=== PATIENT | female | born 1980 | race American Indian/Alaskan Native ===

== ENCOUNTER 2018-03-18 09:24 | Outpatient (CLI) | payer BC ==
--- NOTE | 2018-03-18 10:49 | Mammography Report ---
Screening tomomammogram and 2-D compiled mammography: Routine 3-D views are compared to standard mammography and spot compression views obtained in 2016. The patient has a heterogeneously dense fibroglandular pattern which does not appear substantially different. On the tomomammograms a circumscribed nodular density is suspected in the central breast which is not identified in the lateral images. On the right side in the CC projection there is also a partially circumscribed nodular area noted centrally which is not clearly identified in the lateral tomograms. None of these have suspicious characteristics. CAD used. Impression: Stable exam. Recommendation: Annual mammogram followup. BI-RADS CATEGORY: 2 = Benign ACR BI-RADS MAMMOGRAPHIC CODES: 0 = Needs additional imaging evaluation; 1 = Negative; 2 = Benign; 3 = Probably benign; 4 = Suspicious; 5 = Malignant; 6 = Known biopsy-proven malignancy COMMENT: 1. Dense breast tissue, i.e., adenosis, fibrocystic changes, etc., may obscure an underlying neoplasm. 2. Approximately 10% of cancers are not detected with mammography. 3. A negative mammography report should not delay biopsy if a clinically suspicious mass is present.
== END 2018-03-18 09:25 | disposition home or self-care (01) ==
LOC: MAMMO 09:24
PROVIDERS: ATTEND Obstetrics & Gynecology
DX: Z12.31 Encounter for screening mammogram for malignant neoplasm of breast (principal)
CPT/HCPCS: 77063; 77067

== ENCOUNTER 2019-05-16 11:06 | Outpatient (CLI) | payer BC ==
--- NOTE | 2019-05-16 16:21 | Mammography Report ---
BILATERAL SCREENING MAMMOGRAM DIGITAL WITH CAD and 3D TOMOSYNTHESIS INDICATION: Screening. COMPARISONS: 03/18/2018 FINDINGS: 2D and 3D craniocaudal and mediolateral oblique views of both breasts were obtained [employer] digital acquisition. In addition to standard review, the examination was analyzed for possible abn ormalities using a computer-assisted detection device (iCAD). The breasts are heterogeneously dense, which may obscure small masses. A lobulated circumscribed righ t lower inner mass requires additional evaluation. It measures 1.6 x 1.0 x 0.9 cm and is best imaged on image for of the CC tomosynthesis series. No architectural distortion or suspicious calcification s. The left breast is negative. IMPRESSION: Right circumscribed lower inner mass requiring additional imaging. Recommend recall for a targeted right breast ultrasound. BI-RADS CATEGORY 0: Additional imaging evaluation required. COMMENT: Patient follow-up letters are generated by our [employer] application. Signer Name: Yair Paige MD Signed: 05/16/2019 4:16 PM Workstation Name: [id number]
--- NOTE | 2019-05-16 16:21 | Mammography Report ---
BILATERAL SCREENING MAMMOGRAM DIGITAL WITH CAD and 3D TOMOSYNTHESIS INDICATION: Screening. COMPARISONS: 03/18/2018 FINDINGS: 2D and 3D craniocaudal and mediolateral oblique views of both breasts were obtained [employer] digital acquisition. In addition to standard review, the examination was analyzed for possible abn ormalities using a computer-assisted detection device (iCAD). The breasts are heterogeneously dense, which may obscure small masses. A lobulated circumscribed righ t lower inner mass requires additional evaluation. It measures 1.6 x 1.0 x 0.9 cm and is best imaged on image for of the CC tomosynthesis series. No architectural distortion or suspicious calcification s. The left breast is negative. IMPRESSION: Right circumscribed lower inner mass requiring additional imaging. Recommend recall for a targeted right breast ultrasound. BI-RADS CATEGORY 0: Additional imaging evaluation required. COMMENT: Patient follow-up letters are generated by our [employer] application. Signer Name: Yair Paige MD Signed: 05/16/2019 4:16 PM Workstation Name: [id number]
== END 2019-05-16 11:07 | disposition home or self-care (01) ==
LOC: SPVWC 11:06
PROVIDERS: ATTEND Obstetrics & Gynecology
DX: Z12.31 Encounter for screening mammogram for malignant neoplasm of breast (principal)
CPT/HCPCS: 77063; 77067

== ENCOUNTER 2019-05-23 08:30 | Outpatient (CLI) | payer BC ==
--- NOTE | 2019-05-23 09:07 | Ultrasound Report ---
RIGHT BREAST ULTRASOUND INDICATION: Circumscribed right lower inner mass on recent screening mammogram. COMPARISON: 05/16/2019 FINDINGS: Targeted ultrasound of the lower inner right breast demonstrated a cluster of benign cysts at 5:00 5 cm from the nipple. The largest cyst measures 9 x 7 x 9 mm and the cluster of 3 cysts measu res 1.7 x 0.7 cm. No solid mass or shadowing. IMPRESSION: Right benign cysts and no suspicious finding. BI-RADS 2 BENIGN Signer Name: Yair Paige MD Signed: 05/23/2019 9:03 AM Workstation Name: [id number]
== END 2019-05-23 08:31 | disposition home or self-care (01) ==
LOC: SPVWC 08:30
PROVIDERS: ATTEND Obstetrics & Gynecology
DX: N60.01 Solitary cyst of right breast (principal)

== ENCOUNTER 2020-11-04 08:11 | Outpatient (CLI) | payer BC, OTHER ==
--- NOTE | 2020-11-04 09:37 | Mammography Report ---
DIGITAL SCREENING MAMMOGRAM WITH CAD, 11/04/2020 CLINICAL INFORMATION / INDICATION: Routine screening mammography. TECHNIQUE: Digital bilateral 2D mammography was obtained in the craniocaudal and mediolateral obliqu e projections. This examination was interpreted with the benefit of Computer-Aided Detection analysis . COMPARISON: 05/23/2019, 05/16/2019, 03/18/2018 FINDINGS: Breast Density: There are scattered areas of fibroglandular density. No dominant mass, suspicious calcifications, or architectural distortion in either breast. A cluster of cysts is again seen in the 5-6:00 position posterior depth of the right breast. IMPRESSION: No mammographic evidence of malignancy. Follow up recommendation: Routine yearly BI-RADS Category 2: Benign. A "normal" or negative report should not discourage follow up or biopsy of a clinically significant f inding. A written summary of these findings will be mailed to the patient. The patient will be entered into a mammography reporting system which will generate a reminder letter for the patient's next appointmen t at the appropriate interval. The [employer] recommends yearly mammograms starting at age 40 and continuing as l roberta as a woman is in good health. Breast MRI is recommended for women with an approximate 20-25% or greater lifetime risk of breast cancer, including women with a strong family history of breast or ova donna cancer or who have been treated for Hodgkin's disease. Signer Name: Fei Russell MD Signed: 11/04/2020 9:33 AM Workstation Name: [id number]
== END 2020-11-04 08:12 | disposition home or self-care (01) ==
LOC: SPVWC 08:11
PROVIDERS: ATTEND Obstetrics & Gynecology
DX: Z12.31 Encounter for screening mammogram for malignant neoplasm of breast (principal)
CPT/HCPCS: 77063; 77067

== ENCOUNTER 2022-01-12 08:55 | Outpatient (CLI) | payer OTHER ==
--- NOTE | 2022-01-13 14:49 | Mammography Report ---
DIGITAL SCREENING MAMMOGRAM WITH TOMOSYNTHESIS WITH CAD, 01/12/2022 CLINICAL INFORMATION / INDICATION: Routine Screening Mammography. TECHNIQUE: Digital bilateral 2D and 3D mammography with tomosynthesis was obtained in the craniocaud al and mediolateral oblique projections. Computer-Aided Detection (CAD) analysis was used for interp retation of this study. COMPARISON: Prior mammogram 11/04/2020 and 05/16/2019 FINDINGS: Breast Density: There are scattered areas of fibroglandular density. No dominant mass, suspicious calcifications, or architectural distortion in either breast. There has been no significant change compared with the prior examinations. IMPRESSION: No mammographic evidence of malignancy. Follow up recommendation: Routine yearly BI-RADS Category 1: NEGATIVE A "normal" or negative report should not discourage follow up or biopsy of a clinically significant f inding. A written summary of these findings will be mailed to the patient. The patient will be entered into a mammography reporting system which will generate a reminder letter for the patient's next appointmen t at the appropriate interval. The [employer] recommends yearly mammograms starting at age 40 and continuing as l roberta as a woman is in good health. Breast MRI is recommended for women with an approximate 20-25% or greater lifetime risk of breast cancer, including women with a strong family history of breast or ova donna cancer or who have been treated for Hodgkin's disease. Signer Name: Daria Srivastava MD Signed: 01/13/2022 2:44 PM Workstation Name: [id number]
== END 2022-01-12 08:56 | disposition home or self-care (01) ==
LOC: SPVWC 08:55
PROVIDERS: ATTEND Obstetrics & Gynecology
DX: Z12.31 Encounter for screening mammogram for malignant neoplasm of breast (principal)
CPT/HCPCS: 77063; 77067